=== PATIENT | male | born 2000 | race Caucasian/White ===

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

== ENCOUNTER 2018-02-13 14:14 | Emergency (ER) | payer MEDICAID, SELFPAY ==
[2018-02-13 14:15] VITALS: BP 111/76; PULSE 116; RESP 19; TEMP 39.6; O2SAT 100; BMI 23.8
--- NOTE | 2018-02-13 14:34 | RAD_ITS ---
STUDY: X-RAY CHEST REASON FOR EXAM: Male, 17 years old. Cough, fever and wheezing. TECHNIQUE: Frontal and lateral views of the chest. COMPARISON: None. FINDINGS: The lungs are clear and expanded. There is no demonstrated pleural abnormality. Normal size heart. Normal mediastinum and amber. Normal visualized pulmonary arteries. Normal visualized aortic arch and descending thoracic aorta. Normal visualized thoracic spine. Normal visualized ribs, clavicles, and shoulders. There is no demonstrated abnormality of the visualized soft tissue structures of the upper abdomen. RAD/Chest PA and Lateral IMPRESSION: No significant abnormality. Electronically Signed: Mookie Croft MD at 15:18 EDT , Service support ,
[2018-02-13] MEDS: 0.9% Normal Saline 1,000 ML 1000 ML IV (14:44)
[2018-02-13] MEDS: Ondansetron ODT 4 MG Tablet PO (14:54)
[2018-02-13] MEDS: Acetaminophen 325 MG Tablet 650 MG PO (14:54)
[2018-02-13 15:05] LABS: Anion Gap 8 (5-15); BUN 9 mg/dL (7-18); BUN/Creat Ratio 8.5 RATIO (10-20); Calcium,Total 8.2 mg/dL (8.5-10.1); Chloride 101 mmol/L (98-107); Creatinine, Serum 1.06 mg/dL (0.70-1.30); EST Glomerular Filtration Rate 95 mL/min (>60); Est Glom Filt Rate - Afr Amer 115 mL/min (>60); Glucose 122 mg/dL (74-106); Potassium 3.7 mmol/L (3.5-5.1); Sodium Level 133 mmol/L (136-145)
[2018-02-13 15:20] LABS: Absolute Lymphocyte Count 0.35 X10^3/ul (0.83-4.51); Absolute Neutrophil Count 2.9 X10^3/uL (2.0-7.7); Basophil# 0.01 X10^3/uL; Basophil% 0.3 % (0-1); Hematocrit 33.1 % (40-54); Hemoglobin 11.8 g/dl (13.0-16.5); Lymphocyte # 0.35 X10^3/ul (4.0); Lymphocyte % 10.1 % (19-41); Mean Corp Hgb Conc 35.6 g/gl (32-36); Mean Corpuscular Hgb 31.9 pg (27.0-32.0); Mean Corpuscular Volume 89.5 fL (80-94); Mean Platelet Vol. 8.8 fl (6.2-12.0); Monocyte# 0.18 X10^3/uL; Monocyte% 5.2 % (0-10); Neutrophil # 2.94 X10^3/uL (2.7-7.7); Neutrophil % 84.4 % (47-70); POSITIVE COUNT NO; POSITIVE DIFFERENTIAL YES; POSITIVE MORPHOLOGY NO; Platelet Count 123 K/mm3 (150-450); RBC Distribution Width CV 11.6 % (11.6-14.6); White Blood Count 3.5 K/mm3 (4.4-11.0)
[2018-02-13 15:21] LABS: Differential Indicated SCAN CRITERIA MET
[2018-02-13 15:23] LABS: Differential Comment SCANNED
--- NOTE | 2018-02-13 15:25 | ED.VISSUMM ---
- ER Visit Summary Date of Service: 02/13/18 Chief Complaint: Fever, chills, cough and abdominal pain with nausea and vomiting. History of Present Illness: The patient is a 17 M who presents because he and his mother were not pleased with the care that he received at [facility]. He had blood work, chest x-ray and abdominal CT which reportedly are normal. He is a smoker one half pack per day. He does complain of bitemporal headache. He denies photophobia or stiffness of his neck. He denies rash. He does complain of rhinorrhea and nasal congestion. He also complained of blurred vision. He denied double vision or loss of vision. He does complain of myalgias and arthralgias. He also complains of generalized weakness. Past medical history and past surgical history negative. Physical Examination: Patient is febrile with a temperature 103.2 with a heart rate of 116. Pulse ox is 100% and respirations 16. Head is atraumatic normocephalic. Pupils equal round reactive. Extra muscles are intact. Sclerae anicteric. TMs normal. Nares slight drainage noted. Posterior pharynx without erythema XA. Uvula is midline. Trachea is midline. There is no cervical lymphadenopathy. Lungs reveal slight wheezing on the left. There is no rales or egophony. Heart is rapid and regular. There is no murmur, gallop or rub. Abdomen reveals mild tenderness without guarding rebound tenderness. There is no CVA tenderness noted. There is no dermatologic lesions and specifically no petechia purpura. Patient is alert and oriented ?3. Motor is 5 over 5. Sensory is intact. DTRs are symmetric with no clonus or Babinski sign. Cranial 2 through 12 are intact. Cerebellar testing is normal. Test Results: Two-view [facility] by [facility]. White count is 3.5 thousand. Electro panels unremarkable. Monitor revealed a sinus tachycardia of 110+ without ectopy. Emergency Department Course and Treatment: To evaluate patient's symptoms since he has a cough chest x-ray was obtained. Blood work was repeated since he is not improved. Treatment Plan: Symptomatic treatment and appropriate home-going instructions prescriptions that he was given from outside facility are appropriate Disposition: Discharge to home with mother Impression: 1. Fever 103.2 2. Acute viral syndrome/upper respiratory infection 3. Neutropenia secondary #2 This note was generated with Dragon dictation software. It may contain incorrect words, spelling, and punctuation that were not noted in review of the chart prior to signing ED Disposition - Plan for ED Patient: Disposition: Home or Assisted Living Chief Complaint: Fever Instructions: ED Upper Resp Infec No Abx Tx, ED Fever Control Referrals: Graham Ireland MD [Primary Care Provider] - 1 Week if not improving
--- NOTE | 2018-02-13 15:29 | ED.DCSUM_ITS ---
- ER Visit Summary Date of Service: 02/13/18 Chief Complaint: Fever, chills, cough and abdominal pain with nausea and vomiting. History of Present Illness: The patient is a 17 M who presents because he and his mother were not pleased with the care that he received at [facility]. He had blood work, chest x-ray and abdominal CT which reportedly are normal. He is a smoker one half pack per day. He does complain of bitemporal headache. He denies photophobia or stiffness of his neck. He denies rash. He does complain of rhinorrhea and nasal congestion. He also complained of blurred vision. He denied double vision or loss of vision. He does complain of myalgias and arthralgias. He also complains of generalized weakness. Past medical history and past surgical history negative. Physical Examination: Patient is febrile with a temperature 103.2 with a heart rate of 116. Pulse ox is 100% and respirations 16. Head is atraumatic normocephalic. Pupils equal round reactive. Extra muscles are intact. Sclerae anicteric. TMs normal. Nares slight drainage noted. Posterior pharynx without erythema XA. Uvula is midline. Trachea is midline. There is no cervical lymphadenopathy. Lungs reveal slight wheezing on the left. There is no rales or egophony. Heart is rapid and regular. There is no murmur, gallop or rub. Abdomen reveals mild tenderness without guarding rebound tenderness. There is no CVA tenderness noted. There is no dermatologic lesions and specifically no petechia purpura. Patient is alert and oriented ? 3. Motor is 5 over 5. Sensory is intact. DTRs are symmetric with no clonus or Babinski sign. Cranial 2 through 12 are intact. Cerebellar testing is normal. Test Results: Two-view chest x-ray interpreted by [facility] as negative. White count is 3.5 thousand. Electro panels unremarkable. Monitor revealed a sinus tachycardia of 110+ without ectopy. Emergency Department Course and Treatment: To evaluate patient's symptoms since he has a cough chest x-ray was obtained. Blood work was repeated since he is not improved. Treatment Plan: Symptomatic treatment and appropriate home-going instructions prescriptions that he was given from outside facility are appropriate Disposition: Discharge to home with mother Impression: 1. Fever 103.2 2. Acute viral syndrome/upper respiratory infection 3. Neutropenia secondary #2 This note was generated with Dragon dictation software. It may contain incorrect words, spelling, and punctuation that were not noted in review of the chart prior to signing ED Disposition - Plan for ED Patient: Disposition: Home or Assisted Living Chief Complaint: Fever Instructions: ED Upper Resp Infec No Abx Tx, ED Fever Control Referrals: Graham Ireland MD [Primary Care Provider] - 1 Week if not improving
[2018-02-13 15:50] VITALS: BP 118/52; PULSE 120; RESP 17; TEMP 38.6; O2SAT 96
== END 2018-02-13 15:59 | disposition home or self-care (01) ==
PROVIDERS: Emergency Provider Emergency Medicine; Family Provider Family Medicine; PCP Family Medicine
DX: R50.9 Fever, unspecified (principal); J06.9 Acute upper respiratory infection, unspecified; R11.2 Nausea with vomiting, unspecified; H53.8 Other visual disturbances; R00.0 Tachycardia, unspecified; F17.200 Nicotine dependence, unspecified, uncomplicated
CPT/HCPCS: 71046; 80048; 85025; 99285

== ENCOUNTER → 2020-07-22 11:14 | Outpatient (CLI) | payer MEDICAID, SELFPAY ==
[2020-07-22 15:48] LABS: Absolute Lymphocyte Count 1.66 X10^3/uL (0.83-4.51); Absolute Neutrophil Count 2.9 X10^3/uL (2.0-7.7); Basophil# 0.03 X10^3/uL; Basophil% 0.6 % (0-1); Eosinophil# 0.11 X10^3/uL; Eosinophils% 2.1 % (0-5); Hematocrit 42.7 % (40-54); Hemoglobin 14.1 g/dL (13.0-16.5); Lymphocyte # 1.66 X10^3/ul (4.0); Mean Corpuscular Hgb 30.2 pg (27.0-32.0); Mean Corpuscular Volume 91.4 fL (80-94); Mean Platelet Vol. 9.5 fl (6.2-12.0); Monocyte# 0.49 X10^3/uL; Monocyte% 9.4 % (0-10); NRBC Flagged by Analyzer 0 % (0-5); Neutrophil # 2.88 X10^3/uL (2.7-7.7); Neutrophil % 55.5 % (47-70); Platelet Count 282 K/mm3 (150-450); RBC Distribution Width CV 11.9 % (11.6-14.6); RBC Distribution Width SD 39.8 fl (35.1-43.9); Red Blood Count 4.67 M/mm3 (4.6-6.2); White Blood Count 5.2 K/mm3 (4.4-11.0)
[2020-07-22 16:06] LABS: ALB/GLOB Ratio 1.3 RATIO (0.9-2.4); AST(SGOT) 14 U/L (15-37); Alanine Aminotransfer ALT/SGPT 23 U/L (16-61); Albumin, Serum 4.1 g/dL (3.2-5.0); Alkaline Phosphatase 76 U/L (45-117); Anion Gap 4 (5-15); BUN 8 mg/dL (7-18); BUN/Creat Ratio 9.2 RATIO (10-20); Calcium,Total 9.5 mg/dL (8.5-10.1); Chloride 109 mmol/L (98-107); Creatinine, Serum 0.87 mg/dL (0.70-1.30); EST Glomerular Filtration Rate 116 mL/min (>60); Est Glom Filt Rate - Afr Amer 141 mL/min (>60); Globulin 3.2 g/dL (2.2-4.2); Glucose 84 mg/dL (74-106); Potassium 4.1 mmol/L (3.5-5.1); Protein, Total 7.3 g/dL (6.4-8.2); Sodium Level 140 mmol/L (136-145)
== END ==
PROVIDERS: PCP Family Medicine; Referring Provider Family Medicine; Visit Provider Family Medicine
DX: R19.7 Diarrhea, unspecified (principal)
CPT/HCPCS: 36415; 80053; 85025

== ENCOUNTER 2021-04-09 12:54 | Emergency (ER) | payer MEDICAID, SELFPAY ==
[2021-04-09 12:56] VITALS: BP 124/81; PULSE 100; RESP 18; TEMP 36.6; O2SAT 100; BMI 23.6
[2021-04-09 13:46] VITALS: O2SAT 98
--- NOTE | 2021-04-09 13:55 | EX.ED.VIS.UR ---
HPI HPI - URI History of Present Illness Chief Complaint: Cough Informant: patient Onset/Context/Timing Onset: Days Context: Gradual Onset Timing: Continuous Current Severity: Mild Maximum Severity: Mild Associated Symptoms Associated Symptoms: Positive for Nasal Congestion and Nonproductive cough; Negative for Headache, Sinus Pressure, Myalgias, Nausea, Vomiting, Diarrhea, Shortness of Breath, Chest Pain, Hemoptysis and Productive Cough Narrative Narrative: 20-year-old healthy male no severe past medical or surgical history. Currently on no medications. Said a 2-day history of mild sore throat, runny nose nonproductive cough and congestion. Denies nausea, vomiting, diarrhea. No shortness of breath. No fever or chills. He has not been vaccinated for Covid. Prior similar symptoms: Yes Recent Illness/Hospitalization: No ROS ROS ED ROS Narrative Nonproductive cough, mild sore throat, nasal congestion. Review of Systems ROS Unobtainable: Denies due to encephalopathy Constitutional Constitutional ED: Denies chills or fever(s) Eyes Eyes: Denies change in vision ENT ENT ED: Reports rhinorrhea and sore throat; Denies ear pain Cardiovascular Cardiovascular: Denies chest pain or palpitations Respiratory/Chest Respiratory/Chest: Reports cough; Denies dyspnea Gastrointestinal Gastrointestinal: Denies abdominal pain, diarrhea, nausea or vomiting Genitourinary Genitourinary ED: Denies dysuria or hematuria Musculoskeletal Musculoskeletal: Denies myalgias Integumentary Denies rash Neurologic Neurologic: Denies headache(s) Psychiatric Psychiatric: Denies depression Endocrine Endocrinology: Denies polyuria Hematologic/Lymphatic Hematologic/Lymphatic: Denies easy bruising Allergic/Immunologic Allergic/Immunologic ED: Denies urticaria PFSH PFSH no medical history Home Medications NK 02/13/18 [History Last Taken Unknown] Allergy/AdvReac Type Severity Reaction Status Date / Time No Known Allergies Allergy Verified 04/09/21 12:58 no surgical history Social History Smoking Status: Current every day smoker tobacco type: cigarettes EXAM Physical Exam Narrative Exam Narrative: Healthy male no acute distress. Exam normal. HEENT exam normal. Posterior pharynx normal. Neck nontender no lymphadenopathy. Full range of motion. Lungs clear to auscultation. Heart regular rhythm. Abdomen soft nontender. Extremities normal. Skin normal. Neurologic exam normal. Const Vital Signs: 04/09/21 12:56 04/09/21 13:46 Temperature 98 F Temperature Source Temporal Pulse Rate 100 Respiratory Rate 18 Respiratory Effort Normal Non-Labored Blood Pressure 124/81 H Blood Pressure Mean 95 Pulse Ox 100 Oxygen Delivery Method Room Air Room Air Positive well nourished and well developed; Negative for obese, cachectic or contractures General Appearance ED: well developed and NAD; Negative for cachectic, contractures, cyanotic, diaphoretic or pallor Nutritional Appearance: Negative for cachectic or obese HEENT Reports moist mucous membranes; Denies dry mucous membranes normocephalic, atraumatic and scalp tenderness External Ear: external ears normal; Negative for mastoids normal Mouth ED: No dry mucous membranes Mouth: No dry mucous membranes Eyes PERRL and EOMs intact bilaterally General Eye ED: Negative for pale conjunctiva or scleral icterus Neck no lymphadenopathy, supple, no meningeal signs and no JVD General: Negative for anterior neck swelling or lymphadenopathy Resp normal respiratory effort and clear to auscultation bilaterally Auscultation: Negative for rales, rhonchi or wheezes Cardio S1 normal heart sound, S2 normal heart sound and no murmurs Rate: regular rate Rhythm: regular rhythm GI non-tender, non-distended and no masses Auscultation: normoactive bowel sounds; Negative for hyperactive bowel sounds Palpation: soft; Negative for tender or guarding Back/Spine no CVA tenderness and normal ROM General Back: Negative for CVA tenderness Cervical Spine: Negative for cervical spine tenderness Extremity normal to inspection and full ROM General Extremety ED: Negative for cyanosis or tenderness General Extremity: Negative for cyanosis Neuro oriented x3 Sensorium / Orientation: alert, oriented to person, oriented to place and oriented to time; Negative for orientation impaired, lethargic or stuporous Motor Exam: strength 5/5 throughout Psych mental status grossly normal Attitude: No agitated Mood & Affect: Negative for depressed or tearful Skin General Skin Exam: Negative for jaundice or pallor Lesions: no lesions Rashes: no rashes MDM MDM MDM Narrative Medical decision making narrative: Well-appearing 20-year-old no acute distress. Has either a regular viral syndrome or COVID-19 and will be tested. He is not hypoxic will be discharged home. Repeat exam doing well at 2:40 PM. Patient discussed test results. Treated as a viral syndrome. Lab Data Attestation: I reviewed the patient's lab results. Lab results narrative: Covid negative. Discharge Plan Triage Chief Complaint: Cough ED Provider: Luis Tony Dx/Rx/DC Orders Clinical Impression: Viral URI Prescriptions: No Action NK RF: 0 Primary Care Provider: rGaham Ireland Referrals: Graham Ireland MD [Primary Care Provider] - As Needed Activity Restrictions/Additional Instructions: Plenty of fluids and rest. Tylenol and Motrin as needed. Follow-up with your doctor as needed. Your Covid test was negative. You may return to work. Disposition Disposition: Home, Self Care
== END 2021-04-09 14:46 | disposition home or self-care (01) ==
PROVIDERS: Emergency Provider Emergency Medicine; PCP Family Medicine
DX: J06.9 Acute upper respiratory infection, unspecified (principal); Z20.822 Contact with and (suspected) exposure to COVID-19; F17.210 Nicotine dependence, cigarettes, uncomplicated
CPT/HCPCS: 87426; 99282